=== PATIENT | female | born 1960 | race Caucasian/White ===

== ENCOUNTER 2017-01-31 07:54 | Day surgery (SDC) | payer BC, OTHER ==
[~2017-01-31 07:54] MED LIST: RINGER'S SOLUTION,LACTATED 1,000 ML IV PRN
[2017-01-31] MEDS ORDERED: RINGER'S SOLUTION,LACTATED 1,000 ML IV ONE (08:25)
[2017-01-31] MEDS ORDERED: RINGER'S SOLUTION,LACTATED 1,000 ML IV PRN (10:33)
[2017-01-31 11:20] VITALS: BP 122/83
--- NOTE | 2017-01-31 18:29 | OR ---
Operative Report - Dictated Report Narrative: OPERATIVE REPORT DATE OF OPERATION: 01/31/2017 PREOPERATIVE DIAGNOSIS: No prior dedicated colon studies POSTOPERATIVE DIAGNOSIS: Very large pedunculated polyp at 30 cm otherwise normal colonoscopy to the cecum OPERATION: Colonoscopy with snare polypectomy at 30 cm (very difficult procedure due to large nature of the polyp) SURGEON: Dieter Rosario MD ANESTHESIA: ADRIANA Lewis CRNA INDICATIONS FOR PROCEDURE: The patient is a 56-year-old female referred by Dr Jara for initial colon screening. There is no family history of colon cancer. The patient has had no previous dedicated colon studies. She generally moves her bowels once or perhaps twice a day. Occasionally she has some bright red blood after bowel movements. She denies abdominal pain. FINDINGS: Very high anesthesia requirement. Large pedunculated polyp at 30 cm. Tortuous colon otherwise normal exam to the cecum NARRATIVE OF PROCEDURE: The patient was identified in the holding area, and prior to the administration of anesthetic, a multidisciplinary timeout was observed. With the patient in the left lateral position and after the administration of intravenous sedation, the perineum was inspected. There was no evidence of pilonidal disease or skin breakdown. The external appearance of the anus was normal. Sphincter tone was good. The flexible fiberoptic colonoscope was inserted into the rectum which was insufflated with air. The rectal mucosa and submucosal vascular pattern appeared normal, the prep was seen to be complete. The scope was advanced through the sigmoid colon, where at approximately 30 cm a very large polypoid lesion was encountered. The lesion filled the lumen of the colon, however it did appear to be pedunculated. A cautery snare was placed around the polyp which was partially amputated, this resulted in sufficient visualization to allow the scope to be safely passed proximally. The amputated fragment of polyp was retrieved and submitted to pathology. The scope was readvanced to the level of the polyp which could then be successfully bypassed. The scope was advanced up the descending colon, and around the splenic flexure where the triangular haustral architecture of the transverse colon was seen. The scope was advanced across the transverse colon to the hepatic flexure at which point the entire 160 cm of colonoscope had been inserted. By the use of standard reduction maneuvers and gentle external manual compression on the abdomen, the scope could be advanced around the hepatic flexure into the ascending colon and a long view of the ascending colon and portion of the apex of the cecum or visible. Despite additional reduction maneuvers, however, the scope could not be advanced into the true cecum. A photograph was obtained visualizing approximately 50% of the cecal apex. The scope was then slowly withdrawn in a circular fashion so that all aspects of colonic mucosa were inspected. The proximal colon was very capacious in character and somewhat redundant in course. The haustral architecture appeared well preserved throughout with no evidence of external compression. The mucosa and submucosal vascular pattern appeared normal, specifically there was no gross evidence to suggest colitis or inflammatory bowel disease and no AV malformations were seen. No ifeanyi diverticular openings were demonstrated. Aside from the previously addressed polyp at 30 cm , no additional polyps were encountered. The scope was gradually withdrawn to the level of the polyp at 30 cm. A cautery snare was deployed and the remainder of the polyp was amputated piece meal down to a long stalk. The fragments of polyp were retrieved and submitted to pathology. The end of the stalk appeared to be hemostatic. The scope was gradually withdrawn to the level of the rectum. As much insufflated air as possible was removed. The scope was withdrawn from the patient and the procedure terminated. The patient tolerated the anesthetic and procedure well without complication and was transferred back to the ambulatory surgery area awake and in stable condition. The patient remained stable throughout a period of postoperative observation. She denied abdominal discomfort, was able to tolerate by mouth intake, and was up without assistance. I shared the operative findings with the patient and her and they were given copies of the photographs which appear in the medical record. She was discharged home with instructions not to engage in hazardous activity today, but may resume normal activity tomorrow, and advance diet as tolerated. She is to continue those medications as listed in the history and physical exam. I made arrangements to contact her with the biopsy reports and will make additional recommendations for treatment and follow-up based upon those results. Reviewed and electronically signed
== END 2017-01-31 07:55 | disposition home or self-care (01) ==
LOC: AMB 07:54
PROVIDERS: ATTEND Surgery
PROC: 0DBN8ZX Excision of Sigmoid Colon, Via Natural or Artificial Opening Endoscopic, Diagnostic (ICD-10-PCS; principal; 2017-01-31 08:30)
DX: Z12.11 Encounter for screening for malignant neoplasm of colon (principal); D12.5 Benign neoplasm of sigmoid colon; K63.5 Polyp of colon; F41.8 Other specified anxiety disorders; Z87.891 Personal history of nicotine dependence; Z68.32 Body mass index [BMI] 32.0-32.9, adult